=== PATIENT | female | born 2000 | race Caucasian/White ===

== ENCOUNTER 2021-07-12 04:39 | Outpatient (CLI) | payer OTHER ==
[~2021-07-12 04:39] MED LIST: FAMOTIDINE20 MG PO; IBUPROFEN600 MG PO; NORCO 5-325 TA1 EACH PO; PRENATAL VITAM1 EAC8 PO
== END 2021-07-12 09:58 | disposition home or self-care (01) ==
LOC: GENOP 04:39
DX: O47.03 False labor before 37 completed weeks of gestation, third trimester (principal); Z3A.36 36 weeks gestation of pregnancy
CPT/HCPCS: 81001; G0463

== ENCOUNTER 2021-07-25 12:10 | Inpatient (IN) | payer OTHER ==
[~2021-07-25] VITALS: Ht 157.5 cm; Wt 109.8 kg
[2021-07-27 18:25] LABS: HEMOGLOBIN 11.8 gm/dl (12.3-15.3); RED BLOOD COUNT 4.5 M/UL (4.00-5.10); WHITE BLOOD COUNT 9.5 K/UL (4.5-11.0)
[2021-07-28] MEDS ORDERED: PRENATAL VITAM1 EAC3 PO (08:35)
[2021-07-28] MEDS ORDERED: PEPCID20 MG PO (08:36)
[2021-07-28 22:18] LABS: HEMOGLOBIN 8.5 gm/dl (12.3-15.3)
[2021-07-29 03:34] LABS: HEMOGLOBIN 7.5 gm/dl (12.3-15.3)
[2021-07-30] MEDS ORDERED: IBUPROFEN800 MG PO (07:33)
[2021-07-30] MEDS ORDERED: HEMOCYTE324 MG PO (07:33)
[2021-07-30] MEDS ORDERED: COLACE100 MG PO (07:33)
== END 2021-07-30 17:37 | disposition home or self-care (01) | DRG 807 ==
LOC: LBRF 12:10 → OB 07-27 16:43
PROVIDERS: ADMIT Obstetrics & Gynecology
PROC: 10E0XZZ Delivery of Products of Conception, External Approach (ICD-10-PCS; principal; 2021-07-28)
PROC: 10907ZC Drainage of Amniotic Fluid, Therapeutic from Products of Conception, Via Natural or Artificial Opening (ICD-10-PCS; 2021-07-28)
PROC: 3E033VJ Introduction of Other Hormone into Peripheral Vein, Percutaneous Approach (ICD-10-PCS; 2021-07-28)
PROC: 0W8NXZZ Division of Female Perineum, External Approach (ICD-10-PCS; 2021-07-28)
DX: O99.214 Obesity complicating childbirth (principal); Z37.0 Single live birth; E66.9 Obesity, unspecified; J45.909 Unspecified asthma, uncomplicated; O99.52 Diseases of the respiratory system complicating childbirth; O99.02 Anemia complicating childbirth; Z20.822 Contact with and (suspected) exposure to COVID-19; Z90.49 Acquired absence of other specified parts of digestive tract; Z90.89 Acquired absence of other organs; Z88.8 Allergy status to other drugs, medicaments and biological substances; Z85.3 Personal history of malignant neoplasm of breast; Z3A.39 39 weeks gestation of pregnancy
CPT/HCPCS: 36415; 51702; 81001; 85014; 85018; 85025; 85461; 86850; 86900; 86901; J0595; J2210; J2405; J2590; J2795; J7120; U0003